=== PATIENT | female | born 1960 | race African-American/Black ===

== ENCOUNTER 2019-02-21 10:43 | Emergency (ER) | payer OTHER ==
[2019-02-21 10:53] VITALS: TEMP 97.4; BMI 39.8
[2019-02-21 11:41] VITALS: BP 140/55; PULSE 56
[2019-02-21 12:14] LABS: BASO % 1.3 % (0-2.0); EOS % 3.3 % (0-4.5); HEMATOCRIT 42.3 % (32.4-45.2); HEMOGLOBIN 13.5 GM/dL (10.7-15.3); LYMPH % 56.5 % (8-40); MCH 27.5 pg (25.7-33.7); MEAN PLT VOLUME 7.9 fl (7.5-11.1); MONO % 9.4 % (3.8-10.2); NEUT % 29.5 % (42.8-82.8); PLATELET COUNT 236 K/MM3 (134-434); RBC 4.91 M/mm3 (3.60-5.2); RDW 14.1 % (11.6-15.6); WHITE BLOOD COUNT 4.3 K/mm3 (4.0-10.0)
[2019-02-21 12:40] LABS: ALBUMIN 3.6 g/dl (3.4-5.0); ALK PHOS 52 U/L (45-117); ANION GAP 4 MMOL/L (8-16); BILIRUBIN,TOTAL 0.5 mg/dL (0.2-1); BLOOD UREA NITROGEN 21 mg/dL (7-18); CALCIUM 9.6 mg/dL (8.5-10.1); CHLORIDE 108 mmol/L (98-107); CO2 27 mmol/L (21-32); CREATININE 0.9 mg/dL (0.55-1.3); GLUCOSE,RANDOM 92 mg/dL (74-106); POTASSIUM 4.7 mmol/L (3.5-5.1); SGOT/AST 31 U/L (15-37); SGPT/ALT 29 U/L (13-61); SODIUM 138 mmol/L (136-145); TOT PROT 7.1 g/dl (6.4-8.2)
--- NOTE | 2019-02-21 15:10 | EKG ---
Test Reason : Blood Pressure : / mmHG Vent. Rate : 057 BPM Atrial Rate : 057 BPM P-R Int : 206 ms QRS Dur : 124 ms QT Int : 430 ms P-R-T Axes : 017 -30 040 degrees QTc Int : 418 ms SINUS BRADYCARDIA LEFT AXIS DEVIATION LEFT VENTRICULAR HYPERTROPHY WITH QRS WIDENING ABNORMAL ECG WHEN COMPARED WITH ECG OF 05-JAN-2015 01:13, NO SIGNIFICANT CHANGE WAS FOUND Confirmed by ANGIE MENDOZA MD ([id number]) on 02/21/2019 3:09:29 PM Referred By: Confirmed By:ANGIE MENDOZA MD
== END 2019-02-21 13:29 | disposition home or self-care (01) ==
LOC: JER 10:43
DX: R07.89 Other chest pain (principal); I10 Essential (primary) hypertension; E11.9 Type 2 diabetes mellitus without complications
CPT/HCPCS: 36415; 71045-TC-FY; 80053; 82550; 82553; 84484; 85025; 93005; 93010; 99283-25